=== PATIENT | female | born 1995 | race Caucasian/White ===

== ENCOUNTER 2022-07-21 10:23 | Emergency (ER) | payer OTHER, SELFPAY ==
[2022-07-21 10:39] VITALS: BP 116/74; PULSE 96; RESP 16; TEMP 37.3; O2SAT 98
--- NOTE | 2022-07-21 11:12 | ED.URI ---
HPI - URI/Sore Throat General Chief Complaint: Upper Respiratory Infection Stated Complaint: Ear Pain/Sore Throat Source: patient and RN notes reviewed History of Present Illness HPI Narrative: 27-year-old presents urgent care with complaints headache, bilateral ear pain, sore throat, subjective fevers, and chills. Patient reports diarrhea that started today. Reports nausea but no vomiting. Patient states she has been having upper respiratory symptoms the last 2-3 days. Patient has been taking Tylenol at home with minimal relief. Some parts of this dictation were generated by voice recognition software and may contain typographical and/or grammatical inaccuracies. Related Data Home Medications Medication Instructions Recorded Confirmed medroxyprogesterone 150 mg/mL See Rx Instructions .Route .COMPLEX 07/21/22 07/21/22 intramuscular suspension Allergies Allergy/AdvReac Type Severity Reaction Status Date / Time morphine Allergy Unknown N/V Verified 07/21/22 10:58 Review of Systems Review of Systems: Pertinent positives and pertinent negatives per HPI. PMFSH Comments At the time of my signature, I reviewed and agree with the nursing past medical, surgical, social, and family history. There is no relevant family history pertinent to the patient complaint. Exam Narrative: GENERAL: This is a well-nourished, well-developed patient, in no apparent distress. HEAD: normocephalic, atraumatic. EYES: Sclera clear/white. Vision is grossly intact. EARS: External ears normal, auditory canals clear and without drainage, TMs normal without perforation. Hearing grossly intact. NOSE: External nose normal with no obvious nasal discharge, nares without redness, no rhinorrhea. THROAT: Mucous membranes moist, posterior pharynx clear. NECK: Neck supple, non-tender without lymphadenopathy, masses or thyromegaly. CARDIOVASCULAR: Regular rate and rhythm without murmurs, gallops, or rubs. RESPIRATORY: Clear to auscultation. Breath sounds equal bilaterally. No wheezes, rales, or rhonchi. GASTROINTESTINAL: Abdomen soft, non-tender, nondistended. Bowel sounds are active. No hepato-splenomegaly, or palpable masses. No guarding. SKIN: warm, intact with no suspicious lesions or rash, good texture and turgor. NEURO: awake, alert, and oriented to person, place and time. There were no obvious focal neurologic abnormalities. Course Course Level of Care: Express Care Visit Vital Signs Vital signs: Vital Signs Temperature 99.1 F 07/21/22 10:39 Pulse Rate 96 07/21/22 10:39 Respiratory Rate 16 07/21/22 10:39 Blood Pressure 116/74 07/21/22 10:39 Pulse Oximetry 98 07/21/22 10:39 Oxygen Delivery Room Air 07/21/22 10:39 Temperature 99.1 F 07/21/22 10:39 Pulse Rate 96 07/21/22 10:39 Respiratory Rate 16 07/21/22 10:39 Blood Pressure 116/74 07/21/22 10:39 Pulse Oximetry 98 07/21/22 10:39 Oxygen Delivery Room Air 07/21/22 10:39 reviewed. MDM - URI/Sore Throat MDM Narrative Medical decision making narrative: Viral illness may last between 7-21 days; antibiotics do not cure viral illness and are NOT recommended at this time. Also, recommend symptomatic treatment includes: rest, fluids, and increase humidity of the air at home. Recommend Acetaminophen as directed on the bottle to reduce fever, pain, headache. Please schedule a follow-up visit with your personal physician for further evaluation and treatment within 3-5days. If your symptoms persist, change or worsen significantly before you can contact your personal physician then please, without delay, go to the emergency department for further evaluation. Differential Diagnosis Differential diagnosis: Likely upper respiratory infection, otitis media and pharyngitis Lab Data Attestation: I reviewed the patient's lab results. Labs: Strep Screen Presumptive Negative *(Reference Range: Negative)* Cri
== END 2022-07-21 11:18 | disposition home or self-care (01) ==
PROVIDERS: Emergency Provider Nurse Practitioner Family
DX: B34.9 Viral infection, unspecified (principal); Z20.822 Contact with and (suspected) exposure to COVID-19
CPT/HCPCS: 87081; 87426; 87880; 99203; C9803; G0463

== ENCOUNTER 2022-09-20 10:13 | Emergency (ER) | payer OTHER, SELFPAY ==
[2022-09-20 10:18] VITALS: BP 126/85; PULSE 89; RESP 16; TEMP 37.1; O2SAT 100
[2022-09-20 10:21] VITALS: BP 126/85; PULSE 89; RESP 16; TEMP 37.1; O2SAT 100
--- NOTE | 2022-09-20 10:39 | ED.GENADULT ---
HPI - General Adult General Chief complaint: Upper Respiratory Infection Stated complaint: Sinus Congestion/Right Eye Problem Source: patient Mode of arrival: ambulatory Limitations: no limitations History of Present Illness HPI narrative: Patient presents for evaluation of sinus symptoms. Symptom onset 2 weeks ago. She reports sinus congestion and mucopurulent discharge from her nares. She has had a low-grade fever. No chills, nausea, vomiting, diarrhea. Her boyfriend has similar symptoms. Her niece recently had pinkeye. she is a current everyday smoker. Yesterday she felt some right eye irritation. This morning she woke sleep with thick yellow drainage from right eye with her of lashes matted. Denies any visual disturbance other than some mild blurred vision on the right. She has not were glasses or contacts. Related Data Home Medications Medication Instructions Recorded Confirmed medroxyprogesterone 150 mg/mL See Rx Instructions .Route .COMPLEX 07/21/22 09/20/22 intramuscular suspension Allergies Allergy/AdvReac Type Severity Reaction Status Date / Time morphine Allergy Unknown N/V Verified 07/21/22 10:58 Review of Systems Review of Systems: CONSTITUTIONAL:Reports fever. Denies chills or sweats. EYES: Reports right eye irritation and mild blurred vision on the right side. Reports some thick yellow discharge from her right eye. Denies any pain in the globe or pruritus. Denies other visual disturbance. ENT: Reports sinus congestion and thick yellow drainage. Denies sore throat or otalgia. CARDIOVASCULAR: Denies chest pain, palpitations, or edema. RESPIRATORY: Denies cough or dyspnea. GASTROINTESTINAL: Denies abdominal pain, nausea, vomiting, or diarrhea. GENITOURINARY: Denies dysuria or hematuria. SKIN: Denies rash or itching. MUSCULOSKELETAL: Denies back pain, joint pain, or myalgia. NEUROLOGIC: Denies headache, numbness, dizziness, or weakness. PSYCHIATRIC: Denies anxiety or depression. COUNT INCLUDES THE [facility] Past Medical History Medical History Asthma Surgical History Surgical History No pertinent past surgical history Family History Family History Mother Family history non-contributory Social History Social History Smoking packs per day: 1 Smoking cigarettes per day: 20.0 Smoking status: Current every day smoker Living arrangements: with family Gender identity (if verbalized by the patient): Female Sexual Orientation (if Verbalized by the Patient): Straight or Heterosexual Spiritual care concerns: No Exam Narrative: GENERAL: Well-appearing, well-nourished, and in no acute distress. HEAD: Normocephalic, atraumatic. EYES: PERRLA and EOMI. Right conjunctival injection with some yellow discharge noted on the lashes ENT: Nares clear, no rhinorrhea or epistaxis. Bilateral frontal and maxillary sinus tenderness. Mucous membranes moist. Oropharynx without tonsillar hypertrophy exudate or other lesions. Bilateral TMs pearly espana nonbulging NECK: Supple. No adenopathy or masses. No carotid bruits or JVD CHEST: Clear to auscultation. No respiratory distress. No wheezes rales or rhonchi HEART: Regular rate and rhythm. No murmur heard. Normal peripheral pulses. ABDOMEN: Soft, nontender, nondistended, normal active bowel sounds. EXTREMITIES: Normal range of motion. No edema. SKIN: Warm, dry, no rash. NEURO: No focal deficits. Alert and oriented x3. PSYCH: Normal mood and affect. Course Course Emergency Course: This is a 27-year-old female who presented for evaluation of sinus symptoms and right eye irritation. She meets criteria for acute bacterial sinusitis based upon duration of time which she has been symptomatic, nature of discharge, and fever.
== END 2022-09-20 10:41 | disposition home or self-care (01) ==
PROVIDERS: Emergency Provider Nurse Practitioner
DX: J01.90 Acute sinusitis, unspecified (principal); H10.31 Unspecified acute conjunctivitis, right eye; J45.909 Unspecified asthma, uncomplicated
CPT/HCPCS: 99213; G0463

== ENCOUNTER 2023-03-30 11:40 | Emergency (ER) | payer OTHER, SELFPAY ==
[2023-03-30 11:50] VITALS: BP 123/75; PULSE 95; RESP 16; TEMP 37.2; O2SAT 98
--- NOTE | 2023-03-30 12:15 | ED.GENADULT ---
HPI - General Adult General Chief complaint: Upper Respiratory Infection Stated complaint: Sore Throat/Body Aches/Diarrhea Time Seen by Provider: 03/30/23 12:15 Source: patient, RN notes reviewed and old records reviewed Mode of arrival: ambulatory Limitations: no limitations History of Present Illness HPI narrative: 27-year-old female with complaints of a sore throat, body aches since yesterday. Daughter Positive for strep Onset (ago): day(s) (1) Related Data Allergies Allergy/AdvReac Type Severity Reaction Status Date / Time morphine Allergy Unknown N/V Verified 07/21/22 10:58 Review of Systems Review of Systems: All systems reviewed & are unremarkable except as noted in HPI and below Constitutional: Constitutional: Reports no additional constitutional complaints Eyes: Eyes: Reports no additional eye complaints ENT: Reports as per HPI and Reports sore throat Cardiovascular: Cardiovascular: Reports no additional cardiovascular complaints, Denies chest pain and Denies dyspnea Respiratory: Respiratory: Reports no additional respiratory complaints, Denies chest congestion, Denies cough and Denies dyspnea Gastrointestinal: Gastrointestinal: Reports no additional gastrointestinal complaints, Denies abdominal pain, Denies nausea and Denies vomiting Musculoskeletal: Musculoskeletal: Reports no additional musculoskeletal complaints Integumentary/Breasts: Skin/Breast: Reports system reviewed and no additional complaints, except as docu Neurologic: Reports system reviewed and no additional complaints, except as documented Psychiatric: Psychiatric: Reports no additional psychiatric complaints Allergic/Immunologic: Allergic/Immunologic: Reports no additional allergic/immunologic complaints PMFSH Past Medical History Medical History Asthma Surgical History Surgical History No pertinent past surgical history Family History Family History Mother Family history non-contributory Social History Social History Smoking packs per day: 1 Smoking cigarettes per day: 20.0 Smoking status: Current every day smoker Living arrangements: with family Gender identity (if verbalized by the patient): Female Sexual Orientation (if Verbalized by the Patient): Straight or Heterosexual Spiritual care concerns: No Comments At the time of my signature, I reviewed and agree with the nursing past medical, surgical, social, and family history. There is no relevant family history pertinent to the patient complaint. Exam Const: General: cooperative, healthy appearing, comfortable, no acute distress, well developed, alert and well nourished Nutritional Appearance: well nourished Orientation/consciousness: patient oriented x3 Limitations: no limitations HENMT: Head: normal to inspection Ears: hearing grossly normal bilaterally and external ears normal Face/Nose/Sinus: Normal external nose present, Normal nares present, Normal nasal mucous membranes and turbinates present, normal facial exam and face symmetric Face and sinus: normal facial exam and face symmetric Mouth: Yes Normal oral and palatal mucosa present, Yes lip normal and Yes moist mucous membranes Throat: uvula midline and abnormal tonsil bilateral erythema, exudates and hypertrophy 2+ Eyes: General: appearance normal, both eyes and all related structures Alignment and Position: alignment normal Periorbital: periorbital findings normal Pupils: Equal, round and reactive pupils present EOM: EOMs intact bilaterally Neck: Neck: normal visual inspection, full ROM, no lymphadenopathy and no meningeal signs Chest: Chest palpation & inspection: normal inspection of the chest Resp: Effort & Inspection: normal respiratory effort and able to speak in complete s
== END 2023-03-30 12:33 | disposition home or self-care (01) ==
PROVIDERS: Emergency Provider Nurse Practitioner
DX: J02.0 Streptococcal pharyngitis (principal); F17.210 Nicotine dependence, cigarettes, uncomplicated
CPT/HCPCS: 87880; 99213; G0463

== ENCOUNTER 2023-07-17 10:55 | Emergency (ER) | payer OTHER, SELFPAY ==
[2023-07-17 11:08] VITALS: BP 108/67; PULSE 94; RESP 20; TEMP 37.1; O2SAT 99
--- NOTE | 2023-07-17 12:24 | ED.NAVMDI ---
HPI - Nausea/Vomiting/Diarrhea General Chief complaint: Nausea/Vomiting/Diarrhea Stated complaint: nausea/diarrhea Time Seen by Provider: 07/17/23 12:15 Source: patient, RN notes reviewed and old records reviewed Mode of arrival: ambulatory Limitations: no limitations History of Present Illness HPI Narrative: 28 year old female [facility] complaints of nausea and vomiting and diarrhea since last night at 6-7 PM. Patient states that she ate taco mascorro yesterday and is not sure if that is what made her sick or if she has some virus. She reports that daughter had been sick also recently with similar symptoms but she is well now. Patient reports that she has some abdominal cramping across her middle abdomen denies any pain to right lower quadrant of her abdomen with negative McBurney point tenderness on exam. Patient reports that she has had 6 episodes of vomiting with continued nausea and has had 4 episodes of diarrhea. Patient reports that she has been able to keep small amounts of water down. MD elicited complaint: nausea, vomiting, diarrhea and other (abdominal cramping) Onset (ago): day(s) (since last night) Description of vomiting: watery Description of diarrhea: watery Associated nausea: Yes Location of pain: other (mid abdomen cramping) Pain scale (0-10): 9 Quality: cramping Treatment prior to arrival: other (took Zofran pill) Related Data Allergies Allergy/AdvReac Type Severity Reaction Status Date / Time morphine Allergy Unknown N/V Verified 07/21/22 10:58 Review of Systems Review of Systems: CONSTITUTIONAL: Denies fever, chills, or sweats. ENT: Denies rhinorrhea, congestion, sore throat, or otalgia. CARDIOVASCULAR: Denies chest pain, palpitations, or edema. RESPIRATORY: Denies cough or dyspnea. GASTROINTESTINAL: Reports abdominal cramping, nausea, vomiting, diarrhea. GENITOURINARY: Denies dysuria or hematuria. SKIN: Denies rash or itching. MUSCULOSKELETAL: Denies back pain, joint pain, or myalgia. NEUROLOGIC: Denies headache, numbness, or weakness. All systems reviewed & are unremarkable except as noted in HPI and below PMFSH Past Medical History Medical History Asthma Surgical History Surgical History No pertinent past surgical history Family History Family History Mother Family history non-contributory Social History Social History Smoking packs per day: 1 Smoking cigarettes per day: 20.0 Smoking status: Current every day smoker Living arrangements: with family Gender identity (if verbalized by the patient): Female Sexual Orientation (if Verbalized by the Patient): Straight or Heterosexual Spiritual care concerns: No Comments At time of signature, agree with nursing past medical, surgical, social and family history. There is no relevant family history pertinent to the presenting complaint Exam Narrative: GENERAL: Well-appearing, well-nourished, and in no acute distress. HEAD: Normocephalic, atraumatic. EYES: PERRLA, conjunctivae clear, and EOMI. ENT: Nares clear. Mucous membranes moist. Oropharynx without edema, erythema, or lesions. Tonsils not enlarged and without exudate. NECK: Supple. No lymphadenopathy CHEST: Speaks in full sentences. No respiratory distress.no cough noted SAO2 99% on room air HEART: Regular rate and rhythm. ABDOMEN: Soft, flat, nondistended. No guarding, rebound tenderness, or rigid. No pulsatilla masses. Bowel sounds present in all four quadrants. No organomegaly. Negative Shields?s sign.No McBurney point tenderness No periumbilical tenderness. No Supra public tenderness or distension. Good femoral pulses bilaterally. No hernia noted. No scars or surface trauma positive for nausea vomiitng and diarrhea with mid abdomi
== END 2023-07-17 13:18 | disposition home or self-care (01) ==
PROVIDERS: Emergency Provider Registered Nurse
DX: K52.9 Noninfective gastroenteritis and colitis, unspecified (principal); F17.210 Nicotine dependence, cigarettes, uncomplicated; J45.909 Unspecified asthma, uncomplicated
CPT/HCPCS: 87804; 99213; G0463

== ENCOUNTER 2025-03-31 08:17 | Emergency (ER) | payer OTHER, SELFPAY ==
[2025-03-31 08:22] VITALS: BP 114/67; PULSE 90; RESP 16; TEMP 36.9; O2SAT 99
--- NOTE | 2025-03-31 08:33 | ED_ITS ---
HPI - URI/Sore Throat General Chief Complaint: Upper Respiratory Infection Stated Complaint: throat pain Time Seen by Provider: 03/31/25 08:38 Source: patient, RN notes reviewed and old records reviewed Mode of arrival: ambulatory Limitations: no limitations History of Present Illness HPI Narrative: 29 year old female who presents to [facility] care with complaints of sore throat which started this morning with some nasal congestion and drainage which started yesterday. Patient is 25 weeks and is presently on Macrobid for an urinary tract infection.Patient reports that highest fever noted was 100.4F. Jesus fina admits to some cough which is dry.She has not taken any OTC medications this morning for her symptoms MD elicited complaint: sore throat, rhinorrhea and nasal congestion Pertinent past history: other (strep throat) Onset (ago): day(s) (yesterday) Severity: moderate Able to tolerate fluids by mouth: Yes Treatments prior to arrival: none Related Data Home Medications ?Medication ?Instructions ?Recorded ?Confirmed ?Last Taken ?Type nitrofurantoin 03/31/25 Unknown History monohydrate/macrocrystals 100 mg capsule Allergies Allergy/AdvReac Type Severity Reaction Status Date / Time morphine Allergy Unknown N/V Verified 07/21/22 10:58 Review of Systems Review of Systems: CONSTITUTIONAL: Reports malaise, chills, sweats, or fever. EYES: Denies visual changes, redness, or discharge. ENT: Reports rhinorrhea, congestion, no sinus pain,no otalgia and +sore throat. CARDIOVASCULAR: Denies chest pain, palpitations, or edema. RESPIRATORY: Reports dry cough.? Denies dyspnea. GASTROINTESTINAL: Denies abdominal pain, nausea, vomiting, diarrhea SKIN: Denies rash or itching. MUSCULOSKELETAL: Denies myalgia. NEUROLOGIC: Denies headache. All systems reviewed & are unremarkable except as noted in HPI and below PMFSH Past Medical History Medical History Asthma Surgical History Surgical History No pertinent past surgical history Family History Family History Mother Family history non-contributory Social History Social History (Updated 04/01/25 @ 07:48 by SHAQ Zarate Smoking packs per day: 1 Smoking cigarettes per day: 20.0 Smoking status: Former smoker Alcohol intake: former Substance use type: does not use Living arrangements: with family Gender identity (if verbalized by the patient): Female Sexual Orientation (if Verbalized by the Patient): Straight or Heterosexual Spiritual care concerns: No Comments At time of signature, agree with nursing past medical, surgical, social and family history. There is no relevant family history pertinent to the presenting complaint Exam Narrative: GENERAL: Well-appearing, well-nourished, and in no acute distress. HEAD: Normocephalic EYES: PERRLA, conjunctivae clear ENT: Nares clear, turbinates edematous and erythematous, clear discharge. Mucous membranes moist. TM pearly espana with dull light reflex bilaterally; no tragal tenderness. Oropharynx erythematous without lesions. Tonsils not enlarged and without exudate, no drooling, no hoarseness, no trismus, uvula midline.post nasal drainage noted NECK: Supple. No lymphadenopathy CHEST: Clear to auscultation, breath sounds equal. No wheezing, rhonchi, rales, or stridor. No respiratory distress, speaks in full sentences.dry coughSAO2 99% on room air HEART: Regular rate and rhythm. No murmur heard. SKIN: Warm, dry, no rash. NEURO: Alert and oriented x3. PSYCH: Normal mood and affect Course Course Level of Care: Express Care Visit Vital Signs Vital signs: Vital Signs Temperature 36.9 C 03/31/25 08:22 Pulse Rate 90 03/31/25 08:22 Respiratory Rate 16 03/31/25 08:22 Blood Pressure 114/67 03/31/25 08:22 Pulse Oximetry 99 03/31/25 08:22 Oxygen Delivery Room Air 03/31/25 08:22 Temperature 36.9 C 03/31/25 08:22 Pulse Rate 90 03/31/25 08:22 Respiratory Rate 16 03/31/25 08:22 Blood Pressure 114/67 03/31/25 08:22 Pulse Oximetry 99 03/31/25 08:22 Oxygen Delivery Room Air 03/31/25 08:22 reviewed MDM MDM Narrative Medical decision making narrative: 29 year old female who presents with complaints of sore throat starting this morning, patient is 25 weeks and does have history of asthma with no acute cough or any shortness of breath. Patient appears nontoxic. Anticipatory guidance and reasons to seek care in ED reviewed with patient with understanding voiced Differential Diagnosis Differential Diagnosis: Differential diagnostic considerations for upper respiratory infection include upper respiratory infection, croup, otitis media, sinusitis, viral infection, bronchitis, influenza, pharyngitis, strep, uvulitis.? Lab Data MDM Lab Attestation statement: I personally reviewed the patient's lab results. Lab results narrative: strep screen negative, culture sent Labs: Lab Results 03/31/25 Range/Units 08:30 POC Grp A Strep Screen Negative (Negative) reviewed Critical Care Time Critical Care Time Critical Care Time: No Discharge Plan Discharge Clinical Impression: Pharyngitis Patient Disposition: Home Condition: Stable Instructions: Antibiotic Form, Pharyngitis (ED) Additional Instructions: Increase fluids especially juices and water Aziv-aai-[id number] cough and cold medicine of your choice for your symptoms Robitussin DM or CF Zyrtec, Claritin or Karine daily heat to the face 20-30 minutes 4-6 times a day for pain Salt water gargles, throat lozenges or throat sprays as desired Your strep test today was negative. A throat culture will be sent to the laboratory for further testing. IF the test is positive, you will receive a phone call within 48 hours and an appropriate antibiotic will be initiated at that time. list of medications that are safe to take during given to patient Patient Language: Welsh Prescriptions: New acetaminophen 500 mg tablet 1,000 mg PO QID PRN (Reason: fever or pain) Qty: 60 0RF Rx Instructions: no more than 4000 mg daily cetirizine [Zyrtec] 10 mg tablet 10 mg PO DAILY PRN (Reason: allergy symptoms) Qty: 20 0RF No Action nitrofurantoin monohyd/m-cryst 100 mg capsule Follow-up/Referrals: PHYSICIAN,CHEMISTRY RESEARCH ASSISTANT [Primary Care Provider, Internal Medicine] Time of Disposition: 08:59 Quality Mansi Coma Scale Eyes: Open Verbal: Oriented and Alert Motor: Follows Commands Diagonal Coma Total Score: 15
[2025-03-31 09:02] LABS: EDSTREPNEGPOS1 Negative (Negative)
== END 2025-03-31 09:00 | disposition home or self-care (01) ==
PROVIDERS: Emergency Provider Registered Nurse
DX: O99.512 Diseases of the respiratory system complicating pregnancy, second trimester (principal); J02.9 Acute pharyngitis, unspecified; Z3A.25 25 weeks gestation of pregnancy; J45.909 Unspecified asthma, uncomplicated; Z87.891 Personal history of nicotine dependence
CPT/HCPCS: 87081; 87880; 99213; G0463